=== PATIENT | male | born 1950 | race Caucasian/White ===

== ENCOUNTER 2021-08-27 18:52 | Emergency (ER) | payer OTHER ==
[~2021-08-27] VITALS: Ht 177.8 cm; Wt 90.9 kg
--- NOTE | 2021-08-27 19:42 | PHYS DOC ---
General Adult EDM: Chief Complaint: NAUSEA/VOMITING/DIARRHEA HPI: HPI: Patient is a 71-year-old male who presents to the emergency department with a 2- day history of nausea, vomiting, diarrhea. He reports that he has become lightheaded and feels like when he gets up he starts to feel dizzy. Patient denies any syncopal episodes, fever, urinary symptoms, abdominal pain, sick exposures. Medical history is diabetes. (LEÓN MILLS APRN) Review of Systems: Review of Systems: Constitutional: See HPI GI: See HPI : GI Neurologic: See HPI Endocrine: See HPI (LEÓN MILLS APRN) Current Medications: Current Meds: Current Medications Medications (Trade) Dose Ordered Sig/Nicky Start Time Stop Time Status Last Admin Dose Admin Ondansetron HCl (Zofran) 4 mg 1X ONCE 08/27/21 19:45 08/27/21 19:46 UNV Sodium Chloride 1,000 ml @ 1,000 mls/hr 1X ONCE 08/27/21 19:45 08/27/21 20:44 UNV (LEÓN MILLS APRN) Physical Exam: PE: Constitutional: Well developed, well nourished, no acute distress, non-toxic appearance. [] HENT: Normocephalic, atraumatic, bilateral external ears normal, oropharynx moist, no oral exudates, nose normal. [] Eyes: PERRL, EOMI, conjunctiva normal, no discharge. [] Neck: Normal range of motion, no tenderness, supple, no stridor. [] Cardiovascular:Heart rate regular rhythm, no murmur [] Lungs & Thorax: Bilateral breath sounds clear to auscultation [] Abdomen: Bowel sounds normal, soft, no tenderness, no masses, no pulsatile masses. [] Skin: Warm, dry, no erythema, no rash. [] Back: No tenderness, no CVA tenderness. [] Extremities: No tenderness, no cyanosis, no clubbing, ROM intact, no edema. [] Neurologic: Alert and oriented X 3, normal motor function, normal sensory function, no focal deficits noted. [] Psychologic: Affect normal, judgement normal, mood normal. [] (LEÓN MILLS APRN) Current Patient Data: Labs: Laboratory Tests Test 08/27/21 20:45 White Blood Count 9.1 x10^3/uL Red Blood Count 5.15 x10^6/uL Hemoglobin 16.3 g/dL Hematocrit 47.1 % Mean Corpuscular Volume 91 fL Mean Corpuscular Hemoglobin 32 pg Mean Corpuscular Hemoglobin Concent 35 g/dL Red Cell Distribution Width 15.2 % Platelet Count 161 x10^3/uL Neutrophils (%) (Auto) 78 % Lymphocytes (%) (Auto) 11 % Monocytes (%) (Auto) 8 % Eosinophils (%) (Auto) 2 % Basophils (%) (Auto) 1 % Neutrophils # (Auto) 7.1 x10^3uL Lymphocytes # (Auto) 1.0 x10^3/uL Monocytes # (Auto) 0.8 x10^3/uL Eosinophils # (Auto) 0.1 x10^3/uL Basophils # (Auto) 0.1 x10^3/uL Sodium Level 138 mmol/L Potassium Level 4.2 mmol/L Chloride Level 104 mmol/L Carbon Dioxide Level 22 mmol/L Anion Gap 12 Blood Urea Nitrogen 14 mg/dL Creatinine 0.9 mg/dL Estimated GFR (Cockcroft-Gault) 83.7 BUN/Creatinine Ratio 16 Glucose Level 114 mg/dL Calcium Level 9.3 mg/dL Total Bilirubin 0.8 mg/dL Aspartate Amino Transf (AST/SGOT) 58 U/L Alanine Aminotransferase (ALT/SGPT) 79 U/L Alkaline Phosphatase 175 U/L Troponin I High Sensitivity 10 ng/L Total Protein 7.0 g/dL Albumin 3.7 g/dL Albumin/Globulin Ratio 1.1 Lipase 873 U/L Current Medications Medications (Trade) Dose Ordered Sig/Nicky Route PRN Reason Start Time Stop Time Status Last Admin Dose Admin Sodium Chloride 1,000 ml @ 1,000 mls/hr 1X ONCE IV 08/27/21 19:45 08/27/21 20:44 DC 08/27/21 20:50 Ondansetron HCl (Zofran) 4 mg 1X ONCE IVP 08/27/21 19:45 08/27/21 19:53 DC 08/27/21 20:50 (LEÓN MILLS APRN) EKG: EKG: EKG performed by ER staff at 2037 shows sinus rhythm with a wide QRS, no STEMI read by Dr. Alvarez [] (LEÓN MILLS APRN) Radiology/Procedures: Radiology/Procedures: []PROCEDURE: PORTABLE CHEST 1V XR CHEST 1V Clinical History: Reason: dizziness, / Spl. Instructions: / History: Technique: AP view of the chest was obtained at 08/27/2021 8:04 PM. Comparison: None. Findings: The cardiomediastinal silhouette is normal. The pulmonary vasculature is normal. Mild patchy opacities are seen in the lower lungs. This mild elevation left hemidiaphragm. Impression: Mild bilateral infiltrates could be early atypical pneumonia. 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 PHYSICIAN: LEÓN MILLS APRN REASON: dizziness, PROCEDURE: PORTABLE CHEST 1V XR CHEST 1V Clinical History: Reason: dizziness, / Spl. Instructions: / History: Technique: AP view of the chest was obtained at 08/27/2021 8:04 PM. Comparison: None. Findings: The cardiomediastinal silhouette is normal. The pulmonary vasculature is normal. Mild patchy opacities are seen in the lower lungs. This mild elevation left hemidiaphragm. Impression: Mild bilateral infiltrates could be early atypical pneumonia. 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 PHYSICIAN: LEÓN MILLS APRN REASON: dizziness, PROCEDURE: PORTABLE CHEST 1V XR CHEST 1V Clinical History: Reason: dizziness, / Spl. Instructions: / History: Technique: AP view of the chest was obtained at 08/27/2021 8:04 PM. Comparison: None. Findings: The cardiomediastinal silhouette is normal. The pulmonary vasculature is normal. Mild patchy opacities are seen in the lower lungs. This mild elevation left hemidiaphragm. Impression: Mild bilateral infiltrates could be early atypical pneumonia. Electronically signed by: Nalini Rouse III, MD (08/27/2021 8:51 PM) [facility] DICTATED AND SIGNED BY: NALINI ROUSE III, MD DATE: 08/27/212049 CC: LEÓN MILLS APRN; PCP,UNKNOWN ~ (EMILIE ALVAREZ MD) Heart Score: C/O Chest Pain: N/A Risk Factors: Risk Factors: DM, Current or recent (<one month) smoker, HTN, HLP, family history of CAD, obesity. Risk Scores: Score 0 - 3: 2.5% MACE over next 6 weeks - Discharge Home Score 4 - 6: 20.3% MACE over next 6 weeks - Admit for Clinical Observation Score 7 - 10: 72.7% MACE over next 6 weeks - Early Invasive Strategies (LEÓN MILLS APRN) Course & Med Decision Making: Course & Med Decision Making Pertinent Labs and Imaging studies reviewed. (See chart for details) [] Patient presents to the emergency department for nausea, vomiting and diarrhea with dizziness x2 days. Patient believes that he is dehydrated as he had decreased urine output today. Work-up in the ER consisted of blood work including lipase, EKG, chest x-ray, urinalysis. Patient treated with IV fluids and nausea medication. Patient CBC is unremarkable. He does not have an elevated troponin. His AST is 58 and his ALT is 79. Patient's lipase is elevated to 873 therefore, CT abdomen pelvis without contrast was ordered due to national shortage of contrast. 2151: I discussed patient's case with Dr. Alvarez who will assume patient care at this time due to shift change. (LEÓN MILLS APRN) Course & Med Decision Making Pt.states he good Libertarian so he is not going to get a COVID vaccination. Patient will take Zithromax 250 a day. [facility]. Pt.refuses CT or MRI ...states he can not be in any closed in space.....ever since a tunnel cave in while searching a [employer] tunnel when he was in the [place]...also during a mortor attack the sand bag wall fell on him..and he had to be dug out .... Impression: 1. Nausea vomiting and diarrhea-viral syndrome 2. Elevated AST 58, ALT 79, alk phos 175 3. Elevated lipase 873 4.. Atypical Pneumonia 5. Suspect COVID 6. Renal Insuf. Creat= 2.9 (EMILIE ALVAREZ MD) Dragon Disclaimer: Dragon Disclaimer: This electronic medical record was generated, in whole or in part, using a voice recognition dictation system. (LEÓN MILLS APRN) Departure Departure: Referrals: PCP,UNKNOWN (PCP) Scripts Azithromycin (ZITHROMAX) 250 Mg Tablet 250 MG PO DAILY for ANTI-BIOTIC, #5 TAB 0 Refills Prov: EMILIE ALVAREZ MD 08/27/21 Dragon Disclaimer This chart was dictated in whole or in part using Voice Recognition software in a busy, high-work load, and often noisy Emergency Department environment. It may contain unintended and wholly unrecognized errors or omissions. (EMILIE ALVAREZ MD) Dragon Disclaimer This chart was dictated in whole or in part using Voice Recognition software in a busy, high-work load, and often noisy Emergency Department environment. It may contain unintended and wholly unrecognized errors or omissions. (EMILIE ALVAREZ MD) Dragon Disclaimer This chart was dictated in whole or in part using Voice Recognition software in a busy, high-work load, and often noisy Emergency Department environment. It may contain unintended and wholly unrecognized errors or omissions. (EMILIE ALVAREZ MD) LEÓN MILLS APRN August 27, 2021 19:42 EMILIE ALVAREZ MD August 27, 2021 23:07
[2021-08-27] MEDS ORDERED: IV NORMAL SALINE 1,000ML 1,000 ML IV ONE ×2 (19:45→22:15)
[2021-08-27] MEDS ORDERED: ONDANSETRON PF 4 MG/2 ML VIAL. IVP ONE (19:45)
--- NOTE | 2021-08-27 20:54 | RAD ---
XR CHEST 1V Clinical History: Reason: dizziness, / Spl. Instructions: / History: Technique: AP view of the chest was obtained at 08/27/2021 8:04 PM. Comparison: None. Findings: The cardiomediastinal silhouette is normal. The pulmonary vasculature is normal. Mild patchy opacitie s are seen in the lower lungs. This mild elevation left hemidiaphragm. Impression: Mild bilateral infiltrates could be early atypical pneumonia. Electronically signed by: Sumanth Scott III, MD (08/27/2021 8:51 PM) [facility]
[2021-08-27 21:12] LABS: BASO # 0.1 x10^3/uL (0.0-0.2); BASO % 1 % (0-3); EOS # 0.1 x10^3/uL (0.0-0.7); EOS % 2 % (0-3); HEMATOCRIT 47.1 % (39.0-53.0); HEMOGLOBIN 16.3 g/dL (13.0-17.5); LYMPH % 11 % (24-48); MEAN CORPUSCULAR HEMOGLOBIN 32 pg (25-35); MEAN CORPUSCULAR HGB CONC 35 g/dL (31-37); MEAN CORPUSCULAR VOLUME 91 fL (79-100); MONO # 0.8 x10^3/uL (0.0-1.1); MONO % 8 % (0-9); NEUT # 7.1 x10^3uL (1.8-7.7); NEUT % 78 % (31-73); PLATELET COUNT 161 x10^3/uL (140-400); RED BLOOD COUNT 5.15 x10^6/uL (4.30-5.70); RED CELL DISTRIBUTION WIDTH 15.2 % (11.5-14.5); WHITE BLOOD COUNT 9.1 x10^3/uL (4.0-11.0)
[2021-08-27 21:24] LABS: CALCIUM 9.3 mg/dL (8.5-10.1); CREATININE 0.9 mg/dL (0.7-1.3); GFR 83.7; POTASSIUM 4.2 mmol/L (3.5-5.1)
[2021-08-27 21:30] LABS: ALBUMIN 3.7 g/dL (3.4-5.0); ALBUMIN/GLOBULIN RATIO 1.1 (1.0-1.7); TOTAL BILIRUBIN 0.8 mg/dL (0.2-1.0)
--- NOTE | 2021-08-27 22:15 | RAD ---
Exam: CT of abdomen and pelvis without contrast INDICATION: Nausea vomiting diarrhea, elevated blood pelvis TECHNIQUE: Sequential axial images through the abdomen and pelvis obtained without IV contrast. Sagit charles and coronal reformatted images were reconstructed from the axial data and reviewed. Exposure: One or more of the following in the visualized dose reduction techniques were utilized for this examination: 1. Automated exposure control 2. Adjustment of the MA and/or KV according to patient size 3. Use of iterative of reconstructive technique Comparisons: None FINDINGS: Heart size is normal.. Visualized lung bases are clear. No pleural effusion. Cirrhotic morphology of the liver. Spleen, pancreas, and adrenals are unremarkable. Gallbladder is ab sent. No perinephric inflammation or hydronephrosis. Nonobstructing right and left renal calculi are noted. Several hypoattenuating cystic lesions at the kidneys bilaterally incompletely characterized one of which demonstrates peripheral calcifications at the upper pole of the right kidney. No ureteral calcu li are identified. Bladder is partially distended. Diverticulosis noted at the descending and sigmoid colon without evidence of acute diverticulitis. Ap pendix is normal. Small bowel is unremarkable. No free intra-abdominal air or fluid. No obstruction. Abdominal aorta has normal course and caliber. No enlarged abdominal lymph nodes are identified. No suspicious osseous lesions or acute fractures. IMPRESSION: 1. Diverticulosis without evidence of acute diverticulitis 2. Bilateral nonobstructing renal calculi. 3. Numerous bilateral renal lesions incompletely characterized which demonstrates mild complexity. R ecommend further evaluation with nonemergent/outpatient renal protocol CT or MRI. Electronically signed by: Gregorio Arellano MD (08/27/2021 10:12 PM) [facility]
[2021-08-27] MEDS ORDERED: AZIT250T PO (23:21)
[2021-08-27 23:30] VITALS: BP 135/80
[2021-08-27] MEDS ORDERED: AZITHROMYCIN 250 MG TABLET. PO ONE ×2 (23:30→23:45)
== END 2021-08-28 | disposition home or self-care (01) ==
LOC: ER 18:52
DX: B34.9 Viral infection, unspecified (principal); R79.89 Other specified abnormal findings of blood chemistry; R74.8 Abnormal levels of other serum enzymes; J18.9 Pneumonia, unspecified organism; N28.9 Disorder of kidney and ureter, unspecified; E11.9 Type 2 diabetes mellitus without complications; Z20.822 Contact with and (suspected) exposure to COVID-19
CPT/HCPCS: 36415; 71045; 74176; 80053; 83690; 84484; 85025; 93005; 96361; 96374; 99285; J2405; J7030